=== PATIENT | male | born 1960 | race African-American/Black ===

== ENCOUNTER 2017-02-23 15:24 | Inpatient (IN) | payer MEDICAID, MEDICARE, OTHER ==
[2017-02-23] MEDS ORDERED: Adacel (T-DAP) 0.5 ML VIAL ONE (16:24)
[2017-02-23] MEDS ORDERED: Lidocaine 1% w/Epinephrine 1:200K 30 ML VIAL ONE (16:24)
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
--- NOTE | 2017-02-23 16:28 | CT ---
CT HEAD WITHOUT CONTRAST: Date: 02/23/17 Multiple axial tomograms obtained through the head without IV enhancement. HISTORY: Head injury. COMPARISON: Head CT dated 12/25/14. FINDINGS: There is evidence of acute subarachnoid hemorrhage in the right sylvian fissure. No evidence of paren chymal hematoma. There is increased density along the anterior falx which could represent a tiny falcine subdural jameel dillan. This appears slightly more dense and prominent when compared to the prior exam of 12/25/14 rais ing the possibility of a small subdural at this location. No other evidence of hemorrhage. No mass or infarct. Review of the bone windows show diffuse mucosal opacification of the frontal, ethmoid, and maxillary sinuses. Thickening of the murri[place] of the maxillary sinus suggest chronic mucosal disease. Mucosal thic kening was seen on the prior study as well. IMPRESSION: 1. Acute subarachnoid hemorrhage in the right sylvian fissure. Post-traumatic etiology would be susp ected given the history. 2. Question small falcine subdural anteriorly. 3. Diffuse mucosal opacification of the paranasal sinuses with evidence of chronic sinus mucosal dis ease. Findings related to Leighann Taveras in the ER at the time of dictation. CODE CR. ' POS: [facility]
[2017-02-23 16:39] LABS: Hematocrit 42.9 % (42.0-52.0); Mean Platelet Volume 6.2 fL (7.4-10.4); Red Blood Cell (RBC) Count 4.03 mill/uL (4.70-6.10); White Blood Cell (WBC) Count 7.3 thou/uL (4.8-10.8)
[2017-02-23 16:52] LABS: PTT 36.4 SEC (22.9-36.1); Prothrombin Time 14.2 SEC (12.0-14.7)
[2017-02-23 16:57] LABS: ALT (SGPT) 30 U/L (8-55); AST (SGOT) 72 U/L (5-34); Alkaline Phosphatase 108 U/L (40-150); Anion Gap 12 mmol/L (10-20); BUN (Urea Nitrogen) 4 mg/dL (8.4-25.7); Bilirubin, Total 0.7 mg/dL (0.2-1.2); Calc. Creatinine Clearance 0 mL/min (70-130); Calcium 8.6 mg/dL (7.8-10.44); Carbon Dioxide 26 mmol/L (22-29); Chloride 96 mmol/L (98-107); Estimated GFR-MDRD Greater than 90; Globulin 5.3 g/dL (2.4-3.5); Protein, Total 8.8 g/dL (6.0-8.3)
[2017-02-23 17:00] LABS: #Basophils 0.1 thou/uL (0.0-0.2); #Eosinphils 0.1 thou/uL (0.0-0.7); #Lymphocytes 2.8 thou/uL (1.20-3.40); #Neutrophils 3.4 thou/uL (1.40-6.50); %Basophils 1.4 % (0.0-1.0); %Eosinophils 1.3 % (0.0-10.0)
[2017-02-23] MEDS ORDERED: Bacitracin Zinc 1 Packet ONE (17:40)
[2017-02-23 20:14] LABS: Bilirubin Negative (Negative); Blood, Urine Negative (Negative); Glucose, Urine (Dipstick) Negative (Negative); Ketone, Urine Negative (Negative); Nitrite Negative (Negative); Protein, Urine (Dipstick) Negative (Neg-Trace)
[2017-02-23 20:38] LABS: Amphetamine Not Detected (NotDetected); Methadone Not Detected (NotDetected); Methamphetamine Not Detected (NotDetected)
[2017-02-23] MEDS ORDERED: Ondansetron HCl/PF 4 MG/2 ML Vial IVP PRN (20:50)
[2017-02-23] MEDS ORDERED: Acetaminophen 500 MG TAB PO PRN (20:50)
[2017-02-23] MEDS ORDERED: Dextrose 50% Abboject 50 ML SYRINGE SLOW IVP PRN (20:50)
[2017-02-23] MEDS ORDERED: Dextrose 5% in Water 1,000 ML IV PRN (20:50)
[2017-02-23] MEDS ORDERED: hydrALAZINE 20 MG/ML VIAL SLOW IVP PRN (20:50)
[2017-02-23] MEDS: Sodium Chloride 0.9% 1,000 ML IV SCH (21:07)
[2017-02-23 21:41] VITALS: BMI 20.5
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
[2017-02-24] MEDS: Sodium Chloride 0.9% 1,000 ML IV SCH (04:48)
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
--- NOTE | 2017-02-24 09:43 | CT ---
PRELIMINARY REPORT/[facility]/EMERGENCY AFTER HOURS PROCEDURE: EXAM: CT Head Without Intravenous Contrast CLINICAL HISTORY: 56 years old, male; Signs and symptoms; Other: F/u ich TECHNIQUE: Axial computed tomography images of the head/brain without intravenous contrast. COMPARISON: CT Brain WO Con 2017-02-23 15:45 FINDINGS: Prior exam showed a small amount of subarachnoid blood in the right sylvian fissure and right tempora l region. Also, suspected minimal subdural blood in the lower frontal parafalcine region. Those areas of hemorrhage have almost completely resolved at this time, with only minimal remaining s ubarachnoid blood visible in the right temporal region. No definite new hemorrhage in the interval. A very small amount of blood is now seen in the occipital horn of the left lateral ventricle, probabl y representing previous subarachnoid blood extending into this region. Ventricle size is within normal limits, not significantly changed. No definite acute infarct by CT. No definite acute skull fracture. Prominent fluid/opacity involving the frontal, ethmoid and maxillary sinuses, similar to the prior ex am. IMPRESSION: Almost complete resolution of previously seen intracranial hemorrhage, see above details/discussion. No definite new hemorrhage in the interval. No mass effect or midline shift. Thank you for allowing us to participate in the care of your patient. Dictated and Authenticated by: Earl Paiz MD 02/24/2017 5:00 AM Central Time ([place] & [place]) FINAL REPORT CT HEAD: Date: 02/24/17 Time: 0400 hours Multiple axial tomograms obtained without contrast. Comparison made to film earlier on 02/23/17. FINDINGS: Subarachnoid hemorrhage seen previously in the right sylvian fissure shows significant resolution. So me minimal residual blood density is seen in this region. The questioned anterior falcine subdural is not as apparent on the current study. I am in agreement with the preliminary report issued by [facility]. POS: [facility]
[2017-02-24 14:56] VITALS: BP 149/82; TEMP 97.8
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
== END 2017-02-24 14:57 | disposition home or self-care (01) | DRG 84 ==
LOC: ERS 15:24 → CCU 18:25 → SURG A 02-24 13:35
PROVIDERS: ADMIT Surgery; ATTEND Surgery
PROC: 0HQ3XZZ Repair Left Ear Skin, External Approach (ICD-10-PCS; principal; 2017-02-23)
PROC: 0HQ0XZZ Repair Scalp Skin, External Approach (ICD-10-PCS; 2017-02-23)
PROC: 3E0234Z Introduction of Serum, Toxoid and Vaccine into Muscle, Percutaneous Approach (ICD-10-PCS; 2017-02-23)
DX: S06.6X0A Traumatic subarachnoid hemorrhage without loss of consciousness, initial encounter (principal); S06.6X9A Traumatic subarachnoid hemorrhage with loss of consciousness of unspecified duration, initial encounter; F17.210 Nicotine dependence, cigarettes, uncomplicated; Y04.2XXA Assault by strike against or bumped into by another person, initial encounter; S01.01XA Laceration without foreign body of scalp, initial encounter; S01.312A Laceration without foreign body of left ear, initial encounter; R40.2412 Glasgow coma scale score 13-15, at arrival to emergency department; S06.5X9A Traumatic subdural hemorrhage with loss of consciousness of unspecified duration, initial encounter
CPT/HCPCS: 12002; 12011; 36415; 70450; 72125; 80053; 80306; 81003; 85025; 85610; 85730; 90471; 90715; 94760; 99406; G0390

== ENCOUNTER 2019-03-07 14:56 | Inpatient (IN) | payer OTHER ==
[2019-03-07] MEDS ORDERED: Acetaminophen 500 MG TAB ONE (15:09)
[2019-03-07] MEDS ORDERED: methylPREDNISolone Sod Succ/PF 125 MG/2 ML VIAL ONE (15:09)
[2019-03-07] MEDS ORDERED: Piperacillin/Tazobactam 4.5 GM VIAL ONE (15:09)
[2019-03-07 15:40] LABS: #Basophils 0.1 thou/uL (0.0-0.2); #Lymphocytes 1.8 thou/uL (1.20-3.40); #Monocytes 1.5 thou/uL (0.11-0.59); #Neutrophils 7.4 thou/uL (1.40-6.50); %Basophils 0.9 % (0.0-1.0); %Eosinophils 0.1 % (0.0-10.0); %Lymphocytes 16.9 % (21.0-51.0); %Monocytes 13.5 % (0.0-10.0); %Neutrophils 68.5 % (42.0-75.0); Hemoglobin 14.9 g/dL (14.0-18.0); Mean Corpuscular HGB CONC 34.3 g/dL (32.0-36.0); Mean Corpuscular Hemoglobin 35.4 pg (27.0-31.0); Mean Platelet Volume 7.6 fL (7.4-10.4); Platelet Count 234 thou/uL (130-400); RBC Distribution Width 11.1 % (11.5-14.5); Red Blood Cell (RBC) Count 4.21 mill/uL (4.70-6.10); White Blood Cell (WBC) Count 10.7 thou/uL (4.8-10.8)
[2019-03-07 16:00] LABS: ALT (SGPT) 28 U/L (8-55); AST (SGOT) 80 U/L (5-34); Albumin 3.3 g/dL (3.5-5.0); Alkaline Phosphatase 126 U/L (40-110); Anion Gap 14 mmol/L (10-20); BUN (Urea Nitrogen) 7 mg/dL (8.4-25.7); Bilirubin, Total 3.2 mg/dL (0.2-1.2); CK (CPK) 65 U/L (30-200); Calc. Creatinine Clearance 0 mL/min (70-130); Calcium 8.5 mg/dL (7.8-10.44); Carbon Dioxide 23 mmol/L (22-29); Chloride 91 mmol/L (98-107); Estimated GFR-MDRD Greater than 90; Globulin 5.2 g/dL (2.4-3.5); Glucose 105 mg/dL (70-105); Magnesium 1.9 mg/dL (1.6-2.6); Potassium 3.1 mmol/L (3.5-5.1); Protein, Total 8.5 g/dL (6.0-8.3); Sodium 125 mmol/L (136-145)
--- NOTE | 2019-03-07 16:09 | RAD ---
SINGLE VIEW OF THE CHEST: 03/07/19 COMPARISON: None. HISTORY: Productive cough and dyspnea. FINDINGS: Single view of the chest shows a normal sized cardiomediastinal silhouette. There are bilateral perih ilar opacities. These extend into the lower lobes. No pleural effusion is seen. IMPRESSION: Bilateral perihilar and lower lobe infiltrates. POS: [facility]
[2019-03-07] MEDS ORDERED: Magnesium 2 GM/50 ML BAG (IN WATER) ONE (16:50)
[2019-03-07] MEDS ORDERED: Potassium Chloride 40 MEQ in Sodium Chloride 0.9% 250 ML 250 ML IVPB SCH (17:00)
[2019-03-07] MEDS ORDERED: HYDROcodone/Acetaminophen 5/325 mg Tablet PO PRN (18:30)
[2019-03-07] MEDS ORDERED: Acetaminophen 325 MG TAB PO PRN (18:30)
[2019-03-07] MEDS ORDERED: Ondansetron PF 4 MG/2 ML Vial IVP PRN (18:30)
[2019-03-07] MEDS ORDERED: Senokot S 8.6-50 MG TAB PO PRN (18:30)
[2019-03-07] MEDS ORDERED: Guaifenesin DM 100-10/5 ML UDCUP PO PRN (18:30)
[2019-03-07] MEDS ORDERED: Enoxaparin Sodium 40 MG/0.4 ML SYRINGE SC SCH (18:45)
--- NOTE | 2019-03-07 18:46 | PDOC.HHP ---
Hospitalist HPI - History of Present Illness SOB, Fever History of Present Illness: 58 YO M with a past med hx of tobacco abuse, who has no PCP, and came to the ER due to worsening SOB. Pt began having a fever , sorethroat and cough yday. Cough was productive of yellow sputum. Pt denies CP. Upon waking up this morning, pt's SOB was so bad that he came to the ER. Upon presentation to the ER, he was noted to be septic with fever, tachycardia, hypoxia and increased lactic acidosis. CXR was positive for BL PNA. He was started on O2 and given abx with some improvement. He is therefore being admitted for further evaluation. Hospitalist ROS - Review of Systems Constitutional: reports: fever, chills, sweats, weakness, malaise Eyes: denies: pain, vision change, conjunctivae inflammation, eyelid inflammation, redness, other ENT: reports: throat pain. denies: ear pain, ear discharge, nose pain, nose discharge, nose congestion, mouth pain, mouth swelling, throat swelling, other Respiratory: reports: cough, shortness of breath, SOB with excertion, sputum. denies: dry, hemoptysis, pleuritic pain, wheezing, other Cardiovascular: denies: chest pain, palpitations, orthopnea, paroxysmal noc. dyspnea, edema, light headedness, other Gastrointestinal: denies: nausea, vomiting, abdominal pain, diarrhea, constipation, melena, hematochezia, other Genitourinary: denies: dysuria, frequency, incontinence, hematuria, retention, other Musculoskeletal: denies: neck pain, shoulder pain, arm pain, back pain, hand pain, leg pain, foot pain, other Skin: denies: rash, lesions, cindy, bruising, other Neurological: denies: weakness, numbness, incoordination, change in speech, confusion, seizures, other Hospitalist History - Social History Smoking Status: Current some day smoker Alcohol: reports: Occassional Drugs: reports: marijuana Living Situation: With Family Domestic Violence: Negative Activity level: independent ambulation - Exam General Appearance: NAD, awake alert Eye: PERRL, anicteric sclera ENT: normocephalic atraumatic, no oropharyngeal lesions, moist mucosa Neck: supple, symmetric, no JVD, no thyromegaly, no lymphadenopathy, no carotid bruit Heart: RRR, no murmur, no gallops, no rubs, normal peripheral pulses Respiratory: CTAB, no wheezes, no rales, no ronchi, normal chest expansion, no tachypnea, normal percussion Gastrointestinal: soft, non-tender, non-distended, normal bowel sounds, no palpable masses, no hepatomegaly, no splenomegaly, no bruit Extremities: no cyanosis, no clubbing, no edema Skin: normal turgor, no lesions, no rashes Neurological: cranial nerve grossly intact, normal sensation to touch, no weakness, no focal deficits, no new deficit Musculoskeletal: normal tone, normal strength, no muscle wasting Psychiatric: normal affect, normal behavior, A&O x 3 Hospitalist Results - Labs Result Diagrams: 03/07/19 15:24 03/07/19 15:24 Lab results: WBC 10.7 thou/uL (4.8-10.8) 03/07/19 15:24 Hgb 14.9 g/dL (14.0-18.0) 03/07/19 15:24 Hct 43.4 % (42.0-52.0) 03/07/19 15:24 MCV 103.0 fL (78.0-98.0) H 03/07/19 15:24 Plt Count 234 thou/uL (130-400) 03/07/19 15:24 Neutrophils % 68.5 % (42.0-75.0) 03/07/19 15:24 Sodium 125 mmol/L (136-145) L 03/07/19 15:24 Potassium 3.1 mmol/L (3.5-5.1) L 03/07/19 15:24 Chloride 91 mmol/L (98-107) L 03/07/19 15:24 Carbon Dioxide 23 mmol/L (22-29) 03/07/19 15:24 BUN 7 mg/dL (8.4-25.7) L 03/07/19 15:24 Creatinine 0.83 mg/dL (0.7-1.3) 03/07/19 15:24 Glucose 105 mg/dL (70-105) 03/07/19 15:24 Lactic Acid 3.0 mmol/L (0.5-2.2) H 03/07/19 15:24 Calcium 8.5 mg/dL (7.8-10.44) 03/07/19 15:24 Total Bilirubin 3.2 mg/dL (0.2-1.2) H 03/07/19 15:24 AST 80 U/L (5-34) H 03/07/19 15:24 ALT 28 U/L (8-55) 03/07/19 15:24 Alkaline Phosphatase 126 U/L (40-110) H 03/07/19 15:24 Creatine Kinase 65 U/L (30-200) 03/07/19 15:24 Troponin I Less than 0.010 ng/mL (< 0.028) 03/07/19 15:24 Serum Total Protein 8.5 g/dL (6.0-8.3) H 03/07/19 15:24 Albumin 3.3 g/dL (3.5-5.0) L 03/07/19 15:24 - Radiology Interpretation Chest x-ray Status: report reviewed by me (MATTIE PNA) Hospitalist H&P A/P - Problem (1) PNA (pneumonia) Code(s): J18.9 - PNEUMONIA, UNSPECIFIED ORGANISM Status: Acute Qualifiers: Pneumonia type: due to unspecified organism Laterality: bilateral Lung location: lower lobe of lung Qualified Code(s): J18.9 - Pneumonia, unspecified organism Assessment and Plan: Pt has bilateral PNA. He has been given abx in the ER. Will cont abx, add steroids, nebs, antitussives. Will check for Flu test, Legionella and Strep Ab. Monitor for symp relief. (2) Sepsis Code(s): A41.9 - SEPSIS, UNSPECIFIED ORGANISM Status: Acute Qualifiers: Sepsis type: sepsis due to unspecified organism Sepsis acute organ dysfunction status: with acute organ dysfunction Severe sepsis acute organ dysfunction type: acute respiratory failure Acute respiratory failure type: with hypoxia Severe sepsis shock status: without septic shock Qualified Code (s): A41.9 - Sepsis, unspecified organism; R65.20 - Severe sepsis without septic shock; J96.01 - Acute respiratory failure with hypoxia Assessment and Plan: Sepsis, POA. As evidenced by fever, tachycardia, tachypnea, hypoxia, increased lactic acidosis and PNA. Cont abx and IV hydration. Monitor sepsis indices. (3) Respiratory failure Code(s): J96.90 - RESPIRATORY FAILURE, UNSP, UNSP W HYPOXIA OR HYPERCAPNIA Status: Acute Qualifiers: Chronicity: acute Respiratory failure complication: hypoxia Qualified Code(s): J96.01 - Acute respiratory failure with hypoxia Assessment and Plan: Pt has acute resp failure to PNA. Will treat PNA and cont O2 support. Wean O2 as tolerated. (4) Hyponatremia Code(s): E87.1 - HYPO-OSMOLALITY AND HYPONATREMIA Status: Acute Assessment and Plan: Likely due to decreased oral intake vs SIADH form PNA. Will hydrate with IVF NS , monitor Na levels. (5) Hypokalemia Code(s): E87.6 - HYPOKALEMIA Status: Acute Assessment and Plan: Will replace. Monitor K levels. (6) Tobacco abuse Code(s): Z72.0 - TOBACCO USE Status: Acute Assessment and Plan: Has been counseled. Will give Nicotine patch while in hospital. - Plan Plan: PPx: SCDs CODE status: Full. [place]: Admit as inpatient.
[2019-03-07 18:52] LABS: Lactic Acid 0.9 mmol/L (0.5-2.2)
[2019-03-07] MEDS ORDERED: Potassium Chloride 20 MEQ TAB PO SCH (19:15)
[2019-03-07] MEDS: Sodium Chloride 0.9% 1,000 ML IV SCH (20:20)
[2019-03-07] MEDS: Benzonatate 100 MG CAP PO SCH (20:20)
[2019-03-07] MEDS: Azithromycin 500 MG in Sodium Chloride 0.9% 250 ML 250 ML IVPB SCH (20:46)
[2019-03-07] MEDS: Nicotine 21 MG PATCH TD SCH (20:46)
[2019-03-07 21:07] VITALS: BMI 19.7
[2019-03-07] MEDS: methylPREDNISolone Sod Succ 40 MG VIAL IVP SCH (21:27)
[2019-03-07 22:21] LABS: Legionella Urinary Ag Negative (Negative); Strep pneumo Urine Ag NEGATIVE (NEGATIVE)
[2019-03-08 04:17] LABS: #Lymphocytes 0.9 thou/uL (1.20-3.40); #Monocytes 0.6 thou/uL (0.11-0.59); #Neutrophils 7.4 thou/uL (1.40-6.50); %Basophils 0.3 % (0.0-1.0); %Eosinophils 0.1 % (0.0-10.0); %Lymphocytes 10.1 % (21.0-51.0); %Monocytes 6.5 % (0.0-10.0); Mean Corpuscular HGB CONC 34.8 g/dL (32.0-36.0); Mean Corpuscular Hemoglobin 35.8 pg (27.0-31.0); Mean Platelet Volume 7.7 fL (7.4-10.4); Platelet Count 186 thou/uL (130-400); RBC Distribution Width 11.1 % (11.5-14.5); Red Blood Cell (RBC) Count 3.91 mill/uL (4.70-6.10); White Blood Cell (WBC) Count 8.9 thou/uL (4.8-10.8)
[2019-03-08 04:28] LABS: Anion Gap 11 mmol/L (10-20); BUN (Urea Nitrogen) 7 mg/dL (8.4-25.7); Calc. Creatinine Clearance 111 mL/min (70-130); Calcium 7.6 mg/dL (7.8-10.44); Carbon Dioxide 23 mmol/L (22-29); Chloride 102 mmol/L (98-107); Estimated GFR-MDRD Greater than 90; Glucose 154 mg/dL (70-105); Potassium 4.3 mmol/L (3.5-5.1); Sodium 132 mmol/L (136-145)
[2019-03-08] MEDS: Sodium Chloride 0.9% 1,000 ML IV SCH ×2 (05:24→16:07)
[2019-03-08] MEDS: methylPREDNISolone Sod Succ 40 MG VIAL IVP SCH ×3 (05:24→22:58)
[2019-03-08] MEDS ORDERED: FLU VACC QS2019-20(6MOS UP)/PF 60 MCG/0.5 ML SYRINGE IM ONE (09:00)
[2019-03-08] MEDS: Benzonatate 100 MG CAP PO SCH ×3 (09:03→21:27)
--- NOTE | 2019-03-08 20:15 | PDOC.HOSPP ---
- Subjective Encounter Date: 03/08/19 Encounter Time: 20:15 Subjective: f/u for sepsis, Influenza B and suspected bilateral PNA on Zithromax/ Solumedrol. Feels ok overall. + cough and head congestion. - Objective Vital Signs & Weight: Vital Signs (12 hours) Temp Pulse Resp BP Pulse Ox 03/08/19 19:10 97.9 F 83 18 146/83 H 93 L 03/08/19 15:59 97.6 F 97 20 146/89 H 96 03/08/19 11:53 97.8 F 74 20 142/90 H 90 L Weight Weight 145 lb 5 oz Most Recent Monitor Data Heart Rate from ECG 148 NIBP 134/84 NIBP BP-Mean 100 Respiration from ECG 44 SpO2 93 I&O: 03/07/19 03/08/19 03/09/19 06:59 06:59 06:59 Intake Total 2230 2760 Output Total 625 750 Balance 1605 2009 Result Diagrams: 03/08/19 03:55 03/08/19 03:55 Additional Labs: Microbiology 03/07/19 22:50 Nasopharynx Influenza Types A,B Direct EIA - Final 03/08/19 02:25 Sputum Respiratory Culture - Preliminary 03/07/19 15:24 Venous blood - Right Arm Blood Culture - Preliminary Specimen has been received and culture in progress. No Growth to date. 03/07/19 15:24 Venous blood - Left Arm Blood Culture - Preliminary Specimen has been received and culture in progress. No Growth to date. Laboratory Tests 03/07/19 03/07/19 03/07/19 15:24 15:24 15:24 Neutrophils % 68.5 Sodium 125 L Potassium 3.1 L Lactic Acid 3.0 H Total Bilirubin 3.2 H AST 80 H Ur L.pneumophila Ag Ur Strep pneumoniae Ag 03/07/19 03/07/19 03/07/19 18:17 21:45 21:45 Neutrophils % Sodium Potassium Lactic Acid 0.9 Total Bilirubin AST Ur L.pneumophila Ag Negative Ur Strep pneumoniae Ag NEGATIVE 03/08/19 03:55 Neutrophils % 83.0 H Sodium Potassium Lactic Acid Total Bilirubin AST Ur L.pneumophila Ag Ur Strep pneumoniae Ag Radiology Reviewed by me: Yes (PCXR - bilat perihilar infiltrates) Hospitalist ROS - Medication Medications: Active Medications Generic Name Dose Route Start Last Admin Trade Name Freq PRN Reason Stop Dose Admin Benzonatate 100 mg 03/07/19 21:00 03/08/19 16:06 Tessalon PO 100 mg TID STACIE Administration Azithromycin 500 mg/ Sodium 250 mls @ 250 mls/hr 03/07/19 20:00 03/07/19 20: 46 Chloride IVPB 250 mls Q24HR STACIE Administration Sodium Chloride 1,000 mls @ 100 mls/hr 03/07/19 18:45 03/08/19 16:07 Normal Saline 0.9% IV 1,000 mls .Q10H STACIE Administration Methylprednisolone Sodium Succinate 40 mg 03/07/19 22:00 03/08/19 16:06 Solu-Medrol IVP 40 mg Q8HR STACIE Administration Nicotine 21 mg 03/07/19 21:00 03/07/19 20:46 Nicoderm Patch TD 21 mg Q24HR STACIE Administration - Exam General Appearance: NAD, awake alert Eye: PERRL, scleral icterus ENT: normocephalic atraumatic, no oropharyngeal lesions Neck: supple, symmetric, no JVD, no thyromegaly Heart: RRR, no murmur, no gallops, no rubs, normal peripheral pulses Respiratory - other findings: diminished bilat, exp wheezes, coarse sounds bilat Gastrointestinal: soft, non-tender, non-distended, normal bowel sounds, no palpable masses Extremities: no cyanosis, no clubbing, no edema Skin: normal turgor, no lesions Neurological: cranial nerve grossly intact, no new deficit Musculoskeletal: normal tone, normal strength Psychiatric: normal affect, A&O x 3 Hosp A/P (1) Influenza B Code(s): J10.1 - FLU DUE TO OTH IDENT INFLUENZA VIRUS W OTH RESP MANIFEST Status: Acute Plan: Start Tamiflu 75mg po BID, pulm supportive measures, resp isolation (2) PNA (pneumonia) Code(s): J18.9 - PNEUMONIA, UNSPECIFIED ORGANISM Status: Acute Qualifiers: Pneumonia type: due to unspecified organism Laterality: bilateral Lung location: lower lobe of lung Qualified Code(s): J18.9 - Pneumonia, unspecified organism Plan: Likely due to #1, continue Zithromax currently and monitor resp status (3) Respiratory failure Code(s): J96.90 - RESPIRATORY FAILURE, UNSP, UNSP W HYPOXIA OR HYPERCAPNIA Status: Acute Qualifiers: Chronicity: acute Respiratory failure complication: hypoxia Qualified Code(s): J96.01 - Acute respiratory failure with hypoxia Plan: Continue Solumedrol, Duonebs, O2 supplementation (4) Hypokalemia Code(s): E87.6 - HYPOKALEMIA Status: Acute Plan: Improved, continue serial monitoring (5) Hyponatremia Code(s): E87.1 - HYPO-OSMOLALITY AND HYPONATREMIA Status: Acute Plan: Improved, likely multifactorial including ETOH abuse (6) Sepsis Code(s): A41.9 - SEPSIS, UNSPECIFIED ORGANISM Status: Acute Qualifiers: Sepsis type: sepsis due to unspecified organism Sepsis acute organ dysfunction status: with acute organ dysfunction Severe sepsis acute organ dysfunction type: acute respiratory failure Acute respiratory failure type: with hypoxia Severe sepsis shock status: without septic shock Qualified Code (s): A41.9 - Sepsis, unspecified organism; R65.20 - Severe sepsis without septic shock; J96.01 - Acute respiratory failure with hypoxia Plan: Resolving, continue tx as outlined above (7) Tobacco abuse Code(s): Z72.0 - TOBACCO USE Status: Chronic Plan: Tobacco cessation resources - Plan continue antibiotics, social insurance administrator, respiratory therapy, out of bed/ambulate , DVT proph w/SCDs Stable currently Start Tamiflu 75mg BID Continue Zithromax IV Continue Duonebs/Solumedrol Pneumovax prior to d/c AM lab: CMP
[2019-03-08] MEDS: Oseltamivir 75 MG CAP PO SCH (21:27)
[2019-03-08] MEDS: Azithromycin 500 MG in Sodium Chloride 0.9% 250 ML 250 ML IVPB SCH (21:28)
[2019-03-08] MEDS: Nicotine 21 MG PATCH TD SCH (22:58)
[2019-03-09] MEDS: Sodium Chloride 0.9% 1,000 ML IV SCH ×2 (03:02→06:46)
[2019-03-09] MEDS: methylPREDNISolone Sod Succ 40 MG VIAL IVP SCH ×3 (06:46→22:25)
[2019-03-09 07:20] LABS: ALT (SGPT) 19 U/L (8-55); AST (SGOT) 44 U/L (5-34); Albumin 2.5 g/dL (3.5-5.0); Alkaline Phosphatase 92 U/L (40-110); Anion Gap 10 mmol/L (10-20); BUN (Urea Nitrogen) 7 mg/dL (8.4-25.7); Calc. Creatinine Clearance 118 mL/min (70-130); Calcium 7.7 mg/dL (7.8-10.44); Carbon Dioxide 23 mmol/L (22-29); Chloride 100 mmol/L (98-107); Estimated GFR-MDRD Greater than 90; Glucose 119 mg/dL (70-105); Potassium 3.7 mmol/L (3.5-5.1); Protein, Total 6.5 g/dL (6.0-8.3); Sodium 129 mmol/L (136-145)
[2019-03-09] MEDS: Benzonatate 100 MG CAP PO SCH ×3 (08:57→20:24)
[2019-03-09] MEDS: Oseltamivir 75 MG CAP PO SCH ×2 (08:57→20:25)
--- NOTE | 2019-03-09 16:04 | PDOC.HOSPP ---
- Subjective Encounter Date: 03/09/19 Encounter Time: 16:00 Subjective: f/u for Influenza B and suspected bilat PNA on Tamiflu/Zithromax/Solumedrol. States he is worried about being in the hospital and when he can return home. - Objective Vital Signs & Weight: Vital Signs (12 hours) Temp Pulse Resp BP BP Pulse Ox 03/09/19 12:00 148/86 H 03/09/19 11:22 97.9 F 76 20 148/86 H 98 03/09/19 09:00 28 H 98 03/09/19 08:00 162/83 H 98 03/09/19 07:42 97.9 F 78 26 H 162/83 H 87 L 03/09/19 05:06 97.9 F 81 20 149/80 H 100 Weight Weight 145 lb 5 oz Most Recent Monitor Data Heart Rate from ECG 148 NIBP 134/84 NIBP BP-Mean 100 Respiration from ECG 44 SpO2 93 I&O: 03/08/19 03/09/19 03/10/19 06:59 06:59 06:59 Intake Total 2230 2760 480 Output Total 625 750 Balance 1605 2010 480 Result Diagrams: 03/08/19 03:55 03/09/19 06:04 Additional Labs: Microbiology 03/07/19 22:50 Nasopharynx Influenza Types A,B Direct EIA - Final 03/08/19 02:25 Sputum Respiratory Culture - Preliminary 03/08/19 02:25 Sputum Respiratory Culture - Preliminary 03/07/19 15:24 Venous blood - Right Arm Blood Culture - Preliminary Specimen has been received and culture in progress. No Growth to date. 03/07/19 15:24 Venous blood - Left Arm Blood Culture - Preliminary Specimen has been received and culture in progress. No Growth to date. Laboratory Tests 03/07/19 03/07/19 03/07/19 15:24 15:24 15:24 Neutrophils % 68.5 Sodium 125 L Potassium 3.1 L Lactic Acid 3.0 H Total Bilirubin 3.2 H AST 80 H Ur L.pneumophila Ag Ur Strep pneumoniae Ag 03/07/19 03/07/19 03/07/19 18:17 21:45 21:45 Neutrophils % Sodium Potassium Lactic Acid 0.9 Total Bilirubin AST Ur L.pneumophila Ag Negative Ur Strep pneumoniae Ag NEGATIVE 03/08/19 03:55 Neutrophils % 83.0 H Sodium Potassium Lactic Acid Total Bilirubin AST Ur L.pneumophila Ag Ur Strep pneumoniae Ag Microbiology 03/07/19 22:50 Nasopharynx Influenza Types A,B Direct EIA - Final 03/08/19 02:25 Sputum Respiratory Culture - Preliminary 03/08/19 02:25 Sputum Respiratory Culture - Preliminary 03/07/19 15:24 Venous blood - Right Arm Blood Culture - Preliminary Specimen has been received and culture in progress. No Growth to date. 03/07/19 15:24 Venous blood - Left Arm Blood Culture - Preliminary Specimen has been received and culture in progress. No Growth to date. Laboratory Tests 03/07/19 03/07/19 03/07/19 15:24 15:24 15:24 Neutrophils % 68.5 Sodium 125 L Potassium 3.1 L Lactic Acid 3.0 H Total Bilirubin 3.2 H AST 80 H Ur L.pneumophila Ag Ur Strep pneumoniae Ag 03/07/19 03/07/19 03/07/19 18:17 21:45 21:45 Neutrophils % Sodium Potassium Lactic Acid 0.9 Total Bilirubin AST Ur L.pneumophila Ag Negative Ur Strep pneumoniae Ag NEGATIVE 03/08/19 03:55 Neutrophils % 83.0 H Sodium Potassium Lactic Acid Total Bilirubin AST Ur L.pneumophila Ag Ur Strep pneumoniae Ag Hospitalist ROS - Medication Medications: Active Medications Generic Name Dose Route Start Last Admin Trade Name Freq PRN Reason Stop Dose Admin Benzonatate 100 mg 03/07/19 21:00 03/09/19 14:27 Tessalon PO 100 mg TID STACIE Administration Azithromycin 500 mg/ Sodium 250 mls @ 250 mls/hr 03/07/19 20:00 03/08/19 21: 28 Chloride IVPB 250 mls Q24HR STACIE Administration Sodium Chloride 1,000 mls @ 100 mls/hr 03/07/19 18:45 03/09/19 06:46 Normal Saline 0.9% IV 1,000 mls .Q10H STACIE Administration Methylprednisolone Sodium Succinate 40 mg 03/07/19 22:00 03/09/19 14:27 Solu-Medrol IVP 40 mg Q8HR STACIE Administration Nicotine 21 mg 03/07/19 21:00 03/08/19 22:58 Nicoderm Patch TD 21 mg Q24HR STACIE Administration Oseltamivir Phosphate 75 mg 03/08/19 21:00 03/09/19 08:57 Tamiflu PO 03/13/19 09:01 75 mg BID STACIE Administration - Exam General - other findings: tearful, anxious Eye: PERRL, anicteric sclera ENT: normocephalic atraumatic, no oropharyngeal lesions Neck: supple, symmetric, no JVD, no thyromegaly Heart: RRR, no murmur, no gallops, no rubs Respiratory - other findings: diminished in bases, occasional wheezes Gastrointestinal: soft, non-tender, non-distended, normal bowel sounds, no palpable masses Extremities: no cyanosis, no clubbing, no edema Skin: normal turgor, no lesions Neurological: cranial nerve grossly intact, no new deficit Musculoskeletal: normal tone, normal strength Psychiatric - other findings: tearful, anxious Hosp A/P (1) Influenza B Code(s): J10.1 - FLU DUE TO OTH IDENT INFLUENZA VIRUS W OTH RESP MANIFEST Status: Acute Plan: Continue Tamiflu 75mg BID (2) PNA (pneumonia) Code(s): J18.9 - PNEUMONIA, UNSPECIFIED ORGANISM Status: Acute Qualifiers: Pneumonia type: due to unspecified organism Laterality: bilateral Lung location: lower lobe of lung Qualified Code(s): J18.9 - Pneumonia, unspecified organism Plan: Continue Zithromax IV and convert to po in 24h (3) Respiratory failure Code(s): J96.90 - RESPIRATORY FAILURE, UNSP, UNSP W HYPOXIA OR HYPERCAPNIA Status: Acute Qualifiers: Chronicity: acute Respiratory failure complication: hypoxia Qualified Code(s): J96.01 - Acute respiratory failure with hypoxia Plan: Wean O2 as tolerated (4) Hypokalemia Code(s): E87.6 - HYPOKALEMIA Status: Acute Plan: Resolved (5) Hyponatremia Code(s): E87.1 - HYPO-OSMOLALITY AND HYPONATREMIA Status: Acute Plan: Likely chronic, serial monitoring (6) Sepsis Code(s): A41.9 - SEPSIS, UNSPECIFIED ORGANISM Status: Acute Qualifiers: Sepsis type: sepsis due to unspecified organism Sepsis acute organ dysfunction status: with acute organ dysfunction Severe sepsis acute organ dysfunction type: acute respiratory failure Acute respiratory failure type: with hypoxia Severe sepsis shock status: without septic shock Qualified Code (s): A41.9 - Sepsis, unspecified organism; R65.20 - Severe sepsis without septic shock; J96.01 - Acute respiratory failure with hypoxia Plan: Resolving (7) Tobacco abuse Code(s): Z72.0 - TOBACCO USE Status: Chronic - Plan continue antibiotics, respiratory therapy, out of bed/ambulate, DVT proph w/SCDs Stable currently Start Tamiflu 75mg BID Continue Zithromax IV another 24h then convert to po Continue Duonebs/Solumedrol Pneumovax prior to d/c Plan for d/c 03/10/19
[2019-03-09] MEDS: Azithromycin 500 MG in Sodium Chloride 0.9% 250 ML 250 ML IVPB SCH (20:24)
[2019-03-09] MEDS: Nicotine 21 MG PATCH TD SCH (20:25)
[2019-03-10] MEDS: methylPREDNISolone Sod Succ 40 MG VIAL IVP SCH ×2 (05:57→14:28)
[2019-03-10] MEDS: Benzonatate 100 MG CAP PO SCH ×2 (08:48→14:28)
[2019-03-10] MEDS: Oseltamivir 75 MG CAP PO SCH (08:48)
[2019-03-10 10:06] LABS: Hemoglobin 16.3 g/dL (14.0-18.0); Mean Corpuscular HGB CONC 35.4 g/dL (32.0-36.0); Mean Corpuscular Hemoglobin 36.3 pg (27.0-31.0); Mean Platelet Volume 7.2 fL (7.4-10.4); Platelet Count 358 thou/uL (130-400); RBC Distribution Width 11.3 % (11.5-14.5); Red Blood Cell (RBC) Count 4.49 mill/uL (4.70-6.10); White Blood Cell (WBC) Count 8.9 thou/uL (4.8-10.8)
[2019-03-10 10:48] LABS: ALT (SGPT) 36 U/L (8-55); AST (SGOT) 82 U/L (5-34); Albumin 3.3 g/dL (3.5-5.0); Alkaline Phosphatase 116 U/L (40-110); Anion Gap 12 mmol/L (10-20); BUN (Urea Nitrogen) 8 mg/dL (8.4-25.7); Bilirubin, Total 1.2 mg/dL (0.2-1.2); Calc. Creatinine Clearance 96 mL/min (70-130); Calcium 8.8 mg/dL (7.8-10.44); Carbon Dioxide 27 mmol/L (22-29); Chloride 95 mmol/L (98-107); Estimated GFR-MDRD Greater than 90; Globulin 4.9 g/dL (2.4-3.5); Glucose 167 mg/dL (70-105); Potassium 3.3 mmol/L (3.5-5.1); Protein, Total 8.2 g/dL (6.0-8.3); Sodium 131 mmol/L (136-145)
[2019-03-10 14:43] VITALS: BP 123/77; TEMP 98.1
[2019-03-10] MEDS ORDERED: Potassium Chloride 20 MEQ TAB PO SCH (15:30)
--- NOTE | 2019-03-10 19:51 | DIS ---
DATE OF ADMISSION: 03/07/2019 DATE OF DISCHARGE: 03/10/2019 DISCHARGE DIAGNOSES: 1. Acute respiratory failure with hypoxia. 2. Chronic obstructive pulmonary disease exacerbation. 3. Bilateral multifocal pneumonia. 4. Influenza B infection with pneumonia. 5. Hypokalemia. 6. Hyponatremia. 7. Sepsis due to chronic obstructive pulmonary disease exacerbation and pneumonia and influenza infection. 8. Tobacco abuse disorder. 9. Abnormal liver function tests. HOSPITAL COURSE: A 58-year-old male with no known significant past medical history other than tobacco abuse, who was admitted due to worsening shortness of breath and cough associated with fever and sore throat. Patient was found to be hypoxic, tachycardic, and tachypneic on presentation. Further evaluation revealed influenza B positivity as well as bilateral infiltrates on chest x-ray. Impression of bilateral pneumonia and influenza infection was made. Patient also was found to have hypokalemia and hyponatremia, hence was treated with IV fluid, antibiotics, bronchodilators, steroid, and oxygen supplementation with improvement. Oxygen was subsequently weaned off. Patient remained stable and was subsequently discharged home to complete antibiotic therapy. PHYSICAL EXAMINATION: VITAL SIGNS: Temperature 98.1, pulse 94, respiratory rate 20, SpO2 of 94% on room air, and blood pressure is 153/77. GENERAL: Middle-age male, in no obvious distress. Afebrile. Anicteric. Acyanotic. HEENT: Normocephalic, atraumatic. Oral mucosa is moist. CARDIOVASCULAR: Regular rhythm and rate with normal. heart sounds 1 and 2. RESPIRATORY: Fair air entry bilaterally with coarse transmitted breath sounds with no obvious rhonchi. Work of breathing is not increased. GI: Full, soft, nontender, nondistended with normal bowel sounds. EXTREMITIES: Grossly normal looking, atraumatic with no edema or erythema. 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 Cranial nerves 2 through 12 are grossly intact. Patient moves all extremities. DISCHARGE DISPOSITION: Home. DISCHARGE CONDITION: Improved. FOLLOWUP: Patient was instructed to follow up at the [facility] in 3 to 5 days. DISCHARGE MEDICATION: 1. Nicotine patch 21 mg transdermal daily. 2. Acetaminophen 650 mg q.4 p.r.n. for pain or fever. 3. Albuterol HFA one inhalation q.4 p.r.n. for shortness of breath and wheezing. 4. Mucinex 600 mg p.o. b.i.d. 5. Levofloxacin 750 mg p.o. daily for 7 days. 6. Tamiflu 75 mg p.o. b.i.d. 7. Prednisone 40 mg p.o. daily for 5 days. This discharge took more than 37 minutes. Job ID: [id number]
== END 2019-03-10 16:07 | disposition home or self-care (01) | DRG 871 ==
LOC: ERS 14:56 → IMCU/EMU 18:59 → T4-B 03-08 06:47
PROVIDERS: ADMIT Hospitalist; ATTEND Hospitalist
DX: A41.89 Other specified sepsis (principal); J96.01 Acute respiratory failure with hypoxia; J10.00 Influenza due to other identified influenza virus with unspecified type of pneumonia; E87.2 Acidosis; E87.1 Hypo-osmolality and hyponatremia; J44.1 Chronic obstructive pulmonary disease with (acute) exacerbation; J44.0 Chronic obstructive pulmonary disease with (acute) lower respiratory infection; F17.210 Nicotine dependence, cigarettes, uncomplicated; R65.20 Severe sepsis without septic shock; E87.6 Hypokalemia; I10 Essential (primary) hypertension; Z91.19 Patient's noncompliance with other medical treatment and regimen
CPT/HCPCS: 36415; 71045; 80048; 80053; 82550; 83605; 83735; 84484; 85025; 85027; 87040; 87070; 87205; 87449; 87804; 87899; 93005; J0456; J1650; J2543; J2920; J2930; J3475; J3480; J7050

== ENCOUNTER 2019-07-27 15:09 | Outpatient (CLI) | payer OTHER ==
[~2019-07-27 15:09] MED LIST: Iopamidol 370 76% 100 ML VIAL ONE
--- NOTE | 2019-07-27 16:20 | CT ---
CT CHEST WITH IV CONTRAST: 07/27/19 HISTORY: Metastatic squamous cell carcinoma. FINDINGS: No mediastinal, hilar or axillary mass or lymphadenopathy is seen. No aneurysmal dilatation of the th oracic aorta is seen. No pleural or pericardial effusions are identified. There are mild fibrotic changes. There is a 7 mm nodule in the right lung apex. The possibility of th is representing a metastatic nodule cannot be excluded. Mild patchy ground glass opacities are noted in the right upper and middle lobes. There is a cluster of nodules and cystic lesions in the left lung base which were also seen on the CT abdomen and pelvis of 09/30/12. There is interval thickening of some of the [place]ri[place] of the cystic struct ures. There is scarring in the left lung base. The upper abdominal tomograms are unremarkable. No osteolytic or osteoblastic lesions are identified. IMPRESSION: 1. Indeterminate 7 mm right apical lung nodule. ? metastasis. 2. Chronic cystic and nodular changes in the left lung base with interval thickening of the wall s of some of the cystic lesions. Superinfection cannot be excluded. POS: GUMAROA
== END 2019-07-27 15:10 | disposition home or self-care (01) ==
LOC: BICCT 15:09
PROVIDERS: ATTEND Specialist
DX: C80.1 Malignant (primary) neoplasm, unspecified (principal); C79.9 Secondary malignant neoplasm of unspecified site; R91.8 Other nonspecific abnormal finding of lung field
CPT/HCPCS: 71260; Q9967

== ENCOUNTER 2019-08-08 06:35 | Outpatient (CLI) | payer OTHER ==
--- NOTE | 2019-08-08 20:27 | EKG ---
Test Reason : Blood Pressure : / mmHG Vent. Rate : 073 BPM Atrial Rate : 073 BPM P-R Int : 176 ms QRS Dur : 094 ms QT Int : 378 ms P-R-T Axes : 069 -22 053 degrees QTc Int : 416 ms Normal sinus rhythm Possible Anterior infarct (cited on or before 07-MAR-2019) Abnormal ECG When compared with ECG of 07-MAR-2019 15:09, Vent. rate has decreased BY 36 BPM Confirmed by DESHAUN VENEGAS, SRowan ([id number]) on 08/08/2019 8:27:17 PM Referred By: GOPI Confirmed By:DR. Jorje MEADE MD
[2019-08-09 10:55] LABS: SARS-CoV-2 MS2 Positive; SARS-CoV-2 N Gene Negative; SARS-CoV-2 S Gene Negative; SARS-CoV-2 orf1ab Negative
== END 2019-08-08 06:36 | disposition home or self-care (01) ==
LOC: LABBT 06:35
PROVIDERS: ATTEND Specialist
DX: Z01.812 Encounter for preprocedural laboratory examination (principal); Z11.59 Encounter for screening for other viral diseases; C80.1 Malignant (primary) neoplasm, unspecified; R22.1 Localized swelling, mass and lump, neck; Z72.0 Tobacco use
CPT/HCPCS: 87635; 93005; 93010; U0003

== ENCOUNTER 2019-08-10 08:11 | Day surgery (SDC) | payer OTHER ==
[2019-08-08 13:59] VITALS: BMI 23.6
[2019-08-10] MEDS ORDERED: EPINEPHrine 1 MG/ML AMP ONE (12:31)
[2019-08-10] MEDS ORDERED: Lidocaine 1% w/Epinephrine 1:100K 20 ML VIAL ONE (12:31)
[2019-08-10] MEDS ORDERED: Bacitracin Zinc Ointment 30 gm TUBE ONE (12:32)
[2019-08-10] MEDS ORDERED: Fentanyl 100 MCG/2 ML VIAL ONE ×3 (12:34→15:00)
[2019-08-10] MEDS ORDERED: Glycopyrrolate 0.2 MG/ML 5 ML SYRINGE ONE (12:58)
[2019-08-10] MEDS ORDERED: Rocuronium Bromide 10 MG/ML (10ML VIAL) ONE (12:58)
[2019-08-10] MEDS ORDERED: Dexamethasone 20 MG/5 ML VIAL ONE (12:58)
[2019-08-10] MEDS ORDERED: Lidocaine 1% PF 5 ML VIAL ONE (12:58)
[2019-08-10] MEDS ORDERED: PROPOFOL 200 MG/20 ML VIAL ONE (12:58)
[2019-08-10] MEDS ORDERED: EPHEDRINE 25 MG/5 ML SYRINGE ONE (12:58)
[2019-08-10] MEDS ORDERED: Ondansetron PF 4 MG/2 ML Vial ONE (14:52)
--- NOTE | 2019-08-11 10:08 | OP ---
DATE OF PROCEDURE: 09/10/2019 PREOPERATIVE DIAGNOSES: Left neck mass, left squamous carcinoma of the neck. PROCEDURES PERFORMED: 1. Microsuspension laryngoscopy with biopsy of the oropharynx. 2. Left modified neck dissection involving the posterior triangle. PROCEDURE IN DETAIL: After consent was obtained, the patient was identified, brought to the operating room and placed on the operating room table in supine position and general anesthesia was obtained. The patient was positioned for surgery. The nasopharyngeal, oral cavity, oropharynx, hypopharynx, and larynx were systematically viewed and no abnormalities were appreciated. Blind biopsies were obtained of the nasopharynx and the base of tongue area in the chance of identifying micro primary. We then prepped and draped the patient and addressed the posterior triangle absorbable matted nodes in the posterior triangle and surgery continued from the area of the sternocleidomastoid and then posteriorly to the trapezius muscle and then anteriorly to the clavicle and all lymphatics in this triangle were removed. They did not appear to be any prominent lymphoid disease anterior to the jugular vein and almost all this disease remained in the posterior compartment. A drain was placed, and then flaps were reapproximated with interrupted Monocryl and pop. The patient was ultimately awakened, extubated, taken to recovery room in stable condition prior to discharge home. Job ID: [id number]
== END 2019-08-10 16:55 | disposition home or self-care (01) ==
LOC: SDC 08:11
PROVIDERS: ATTEND Specialist
PROC: 0CBM8ZX Excision of Pharynx, Via Natural or Artificial Opening Endoscopic, Diagnostic (ICD-10-PCS; principal; 2019-08-10)
DX: C10.9 Malignant neoplasm of oropharynx, unspecified (principal)
CPT/HCPCS: 88305; 88341; 88342; J0171; J1100; J2001; J2405; J2704; J3010

== ENCOUNTER 2019-10-18 12:51 | Emergency (ER) | payer OTHER ==
[2019-10-19 14:46] LABS: SARS-CoV-2 MS2 Positive; SARS-CoV-2 N Gene Negative; SARS-CoV-2 S Gene Negative; SARS-CoV-2 by NAA Not Detected (NotDetected); SARS-CoV-2 orf1ab Negative
== END 2019-10-18 13:06 | disposition home or self-care (01) ==
LOC: ERS 12:51
DX: Z20.828 Contact with and (suspected) exposure to other viral communicable diseases (principal); I10 Essential (primary) hypertension; F17.210 Nicotine dependence, cigarettes, uncomplicated
CPT/HCPCS: 87635; 99283; U0003

== ENCOUNTER 2019-12-26 10:53 | Outpatient (CLI) | payer OTHER ==
--- NOTE | 2019-12-26 14:38 | PET ---
Radionucleotide PET scan with CT attenuation correction HISTORY: Secondary malignant neoplasm of neck lymph nodes. Unknown primary. Initial staging. FINDINGS: Physiologic uptake of radiotracer throughout the enteric system and along each urinary trac t. No abnormal uptake is associated with the stable soft tissue density nodules at the left posterior lung base. A focus of uptake at the umbilicus shows max SUV 3.2, with subtle fat stranding on the CT images. Lik georgina an area of inflammation, as single metastatic focus to this location would be extremely unlikely. Bulky, partially confluent mass and adenopathy along the left side of the neck, correlating with that detailed on recent CT neck, shows markedly increased radiotracer uptake, with max SUV 19.8 in the upper conglomerate of nodes and 20.2 in the lower portion. Left supraclavicular adenopathy shows max SUV as high as 19.2. The slightly enlarged lymph nodes along the right lower jugular chain show max SUV 15.4 and 13.2. No abnormal uptake is associated with mucosal thickening of the maxillary sinuses. Suture row at the stomach suggests prior gastric surgery. There is calcification within the arterial structures. IMPRESSION : Hypermetabolic bilateral cervical and left supraclavicular adenopathy. No evidence of distant metasta ses. Atherosclerosis.
== END 2019-12-26 10:54 | disposition home or self-care (01) ==
LOC: PET 10:53
PROVIDERS: ATTEND Radiology Radiation Oncology
DX: C77.0 Secondary and unspecified malignant neoplasm of lymph nodes of head, face and neck (principal); C80.1 Malignant (primary) neoplasm, unspecified; R59.0 Localized enlarged lymph nodes; I70.90 Unspecified atherosclerosis
CPT/HCPCS: 78815; A9552

== ENCOUNTER 2020-01-02 09:48 | Outpatient (CLI) | payer OTHER ==
[2020-01-02 14:38] LABS: Band 3 % (5-11); Eosinophils 1 % (0-10); Lymphocytes 34 % (21-51); MDiff Complete? YES; Mean Corpuscular HGB CONC 34.6 g/dL (32.0-36.0); Mean Corpuscular Hemoglobin 36.4 pg (27.0-31.0); Mean Platelet Volume 8.2 fL (7.4-10.4); Monocytes 14 % (0-10); Neutrophil 45 % (42-75); Platelet Count 230 thou/uL (130-400); Platelet Morphology Comment Appears Adequate; RBC Distribution Width 11.6 % (11.5-14.5); RBC Morphology Normal; Reactive Lymphocytes 2 % (0-10); Red Blood Cell (RBC) Count 4.93 mill/uL (4.70-6.10); White Blood Cell (WBC) Count 4.7 thou/uL (4.8-10.8)
[2020-01-02 14:46] LABS: Anion Gap 13 mmol/L (10-20); BUN (Urea Nitrogen) 4 mg/dL (8.4-25.7); Calc. Creatinine Clearance 0 mL/min (70-130); Carbon Dioxide 22 mmol/L (22-29); Chloride 103 mmol/L (98-107); Estimated GFR-MDRD Greater than 90; Glucose 81 mg/dL (70-105); Potassium 4.2 mmol/L (3.5-5.1); Sodium 134 mmol/L (136-145)
[2020-01-02 14:52] LABS: Calcium 12.9 mg/dL (7.8-10.44)
[2020-01-03 11:55] LABS: SARS-CoV-2 MS2 Positive; SARS-CoV-2 N Gene Negative; SARS-CoV-2 S Gene Negative; SARS-CoV-2 by NAA Not Detected (NotDetected); SARS-CoV-2 orf1ab Negative
== END 2020-01-02 09:49 | disposition home or self-care (01) ==
LOC: LABBT 09:48
PROVIDERS: ATTEND Specialist
DX: Z01.812 Encounter for preprocedural laboratory examination (principal); Z20.828 Contact with and (suspected) exposure to other viral communicable diseases; C76.0 Malignant neoplasm of head, face and neck
CPT/HCPCS: 80048; 85025; 87635; U0003

== ENCOUNTER 2020-01-04 07:02 | Day surgery (SDC) | payer OTHER ==
[2020-01-02 15:06] VITALS: BMI 20.3
[2020-01-04] MEDS ORDERED: Acetaminophen 500 MG TAB ONE (07:33)
[2020-01-04] MEDS ORDERED: Ketorolac Tromethamine 30 MG/ML VIAL ONE (07:33)
[2020-01-04] MEDS ORDERED: Bupivacaine 0.25% HCL 30 ML VIAL ONE (09:28)
[2020-01-04] MEDS ORDERED: Lidocaine 1% w/Epinephrine 1:100K 20 ML VIAL ONE (09:28)
[2020-01-04] MEDS ORDERED: Fentanyl 100 MCG/2 ML VIAL ONE ×2 (09:35→10:24)
[2020-01-04] MEDS ORDERED: Midazolam HCl 2 mg/2 ml Vial ONE (09:43)
[2020-01-04] MEDS ORDERED: Propofol 500 MG/50 ML VIAL ONE (09:43)
[2020-01-04] MEDS ORDERED: Lidocaine 1% (PF) 30 ML VIAL ONE (10:04)
[2020-01-04] MEDS ORDERED: Bupivacaine/Epinephrine 0.25% 30 ML VIAL ONE (10:05)
--- NOTE | 2020-01-04 11:42 | RAD ---
PORTABLE CHEST 1 VIEW: Date: 01/04/2020 Time: 1115 hours HISTORY: Postop MediPort. Secondary malignant neoplasm of neck lymph nodes. FINDINGS: Comparison with 03/07/2019. The heart size is normal. There is a right subclavian Port-A-Cath with tip in the projection of the S VC. No lobar consolidation, pneumothoraces, or pleural effusions are seen. IMPRESSION: No acute process. POS: AH
--- NOTE | 2020-01-04 15:58 | OP ---
DATE OF PROCEDURE: 01/04/2020 PREOPERATIVE DIAGNOSIS: Large left neck squamous cell carcinoma. POSTOPERATIVE DIAGNOSIS: Large left neck squamous cell carcinoma. PROCEDURES PERFORMED: 1. Placement of right subclavian low-profile power-compatible MediPort. 2. Percutaneous endoscopic gastrostomy. PHYSICIAN ASSISTANT SURGERY: Cherie Torres, medical student. ANESTHESIA: Total intravenous anesthesia with local using 0.25% Marcaine with epinephrine. INDICATIONS: The patient is a 59-year-old black male. He has a large bulging squamous cell carcinoma on the left side of his neck. He is anticipated to begin radiation therapy and chemotherapy in the near future. MediPort is requested for this purpose as well as a PEG tube placement. DESCRIPTION OF OPERATION: Informed consent was obtained. The patient was taken to the operating room where total intravenous anesthesia was obtained with the patient in supine position. Attention was turned first to the right chest. The chest was prepped with ChloraPrep and draped in sterile fashion. Local anesthetic was infiltrated. A large gauge needle was passed on the clavicle and subclavian vein. Guidewire was passed through the needle and fluoroscopically confirmed to be in the superior vena cava. Additional local anesthetic was infiltrated and a transverse incision was created based on needle insertion site. Subcutaneous pocket was dissected. Introducer dilator was passed over the guidewire under fluoroscopic guidance. The catheter was passed through the introducer, which was removed in the usual peel-apart fashion. The catheter tip was positioned at the atriocaval junction and the catheter was trimmed to appropriate length and secured to the locking hub of the MediPort. The port was placed in the subcutaneous pocket where it was secured in place with 2 interrupted sutures of 3-0 Prolene. The wound was then closed in layers with 3-0 and 4-0 Monocryl. Dermabond was placed externally. The port aspirated blood freely and was flushed with heparinized saline. Attention was turned to the gastrostomy tube. The gastroscope was advanced in the mouth down the esophagus uneventfully. The stomach was insufflated. Pressure externally was easily visualized through the gastric wall. The left upper quadrant was prepped with ChloraPrep and locally anesthetized with 0.25% Marcaine with epinephrine. A small incision was created and an Angiocath was passed through this incision into the gastric lumen. The guidewire passed through this. Angiocath was grasped and removed through the oropharynx. This was secured to the tapered end of the PEG tube and the complex was then pulled back down through the oropharynx and out through the abdominal wall in the usual pull-through fashion. The external tube connections were attached in the usual fashion along with placement of antibiotic ointment and a gauze dressing. There were no complications. Blood loss was essentially none. The patient tolerated the procedure well. He was taken to recovery room in stable condition. Job ID: [id number]
== END 2020-01-04 12:45 | disposition home or self-care (01) ==
LOC: SDC 07:02
PROVIDERS: ATTEND Specialist
PROC: 0DH63UZ Insertion of Feeding Device into Stomach, Percutaneous Approach (ICD-10-PCS; principal; 2020-01-04)
PROC: 02HV33Z Insertion of Infusion Device into Superior Vena Cava, Percutaneous Approach (ICD-10-PCS; principal; 2020-01-04)
DX: C76.0 Malignant neoplasm of head, face and neck (principal); F17.200 Nicotine dependence, unspecified, uncomplicated
CPT/HCPCS: 71045; C1788; J0690; J1642; J1885; J2001; J2250; J2704; J3010; S0020

== ENCOUNTER 2020-02-20 15:27 | Emergency (ER) | payer OTHER ==
[2020-02-20 16:42] LABS: #Basophils 0.1 thou/uL (0.0-0.2); #Eosinphils 0.4 thou/uL (0.0-0.7); #Lymphocytes 2.5 thou/uL (1.20-3.40); #Monocytes 0.9 thou/uL (0.11-0.59); #Neutrophils 2.1 thou/uL (1.40-6.50); %Basophils 1.1 % (0.0-1.0); %Lymphocytes 42.2 % (21.0-51.0); %Monocytes 14.7 % (0.0-10.0); %Neutrophils 35.9 % (42.0-75.0); Mean Corpuscular HGB CONC 34.6 g/dL (32.0-36.0); Mean Corpuscular Hemoglobin 33.9 pg (27.0-31.0); Platelet Count 212 thou/uL (130-400); RBC Distribution Width 10.9 % (11.5-14.5); Red Blood Cell (RBC) Count 3.54 mill/uL (4.70-6.10); White Blood Cell (WBC) Count 5.9 thou/uL (4.8-10.8)
[2020-02-20 17:03] LABS: ALT (SGPT) 81 U/L (8-55); AST (SGOT) 96 U/L (5-34); Albumin 3.5 g/dL (3.5-5.0); Alkaline Phosphatase 129 U/L (40-110); Anion Gap 8 mmol/L (10-20); BUN (Urea Nitrogen) 9 mg/dL (8.4-25.7); Calc. Creatinine Clearance 0 mL/min (70-130); Carbon Dioxide 31 mmol/L (22-29); Chloride 104 mmol/L (98-107); Estimated GFR-MDRD Greater than 90; Glucose 108 mg/dL (70-105); Protein, Total 8.5 g/dL (6.0-8.3); Sodium 140 mmol/L (136-145)
[2020-02-20 17:08] LABS: Calcium 13.6 mg/dL (7.8-10.44); Potassium 2.9 mmol/L (3.5-5.1)
== END 2020-02-20 19:02 | disposition home or self-care (01) ==
LOC: ERS 15:27
DX: E87.6 Hypokalemia (principal); E83.52 Hypercalcemia; I10 Essential (primary) hypertension; F17.210 Nicotine dependence, cigarettes, uncomplicated
CPT/HCPCS: 36415; 80053; 85025; 93005

== ENCOUNTER 2020-08-02 09:34 | Outpatient (CLI) | payer OTHER | END 2020-08-02 09:35 | disposition home or self-care (01) | LOC: PET 09:34 | PROVIDERS: ATTEND Radiology Radiation Oncology | DX: C77.0 Secondary and unspecified malignant neoplasm of lymph nodes of head, face and neck (principal) | CPT/HCPCS: 78815; A9552 ==